=== PATIENT | female | born 1950 | race Two or more races ===

== ENCOUNTER 2017-09-22 00:12 | Inpatient (IN) | payer OTHER ==
[~2017-09-22] VITALS: Ht 167.6 cm; Wt 154.2 kg
[2017-09-22] MEDS ORDERED: NORVASC5 MG PO (01:22)
== END 2017-09-24 13:34 | disposition home or self-care (01) | DRG 293 ==
LOC: ER 00:12 → MEDJ 10:16 → SEC-K 10:16 → MEDJ 13:06 → MEDI 13:06 → MEDJ 09-24 13:34
PROC: 4A033R1 Measurement of Arterial Saturation, Peripheral, Percutaneous Approach (ICD-10-PCS; principal; 2017-09-22)
PROC: 3E0F7GC Introduction of Other Therapeutic Substance into Respiratory Tract, Via Natural or Artificial Opening (ICD-10-PCS; 2017-09-22)
PROC: B020ZZZ Computerized Tomography (CT Scan) of Brain (ICD-10-PCS; 2017-09-22)
PROC: 4A12X4Z Monitoring of Cardiac Electrical Activity, External Approach (ICD-10-PCS; 2017-09-22)
DX: I11.0 Hypertensive heart disease with heart failure (principal); I50.33 Acute on chronic diastolic (congestive) heart failure; I25.10 Atherosclerotic heart disease of native coronary artery without angina pectoris; E11.42 Type 2 diabetes mellitus with diabetic polyneuropathy; E03.8 Other specified hypothyroidism

== ENCOUNTER 2017-09-29 20:24 | Inpatient (IN) | payer OTHER ==
[~2017-09-29] VITALS: Ht 167.6 cm; Wt 149.7 kg
[~2017-09-29 20:24] MED LIST: NORVASC5 MG PO
== END 2017-10-12 18:08 | disposition home or self-care (01) | DRG 202 ==
LOC: ER 20:24 → SEC-K 09-30 10:57 → SURG 09-30 10:57 → MEDJ 09-30 17:37 → SEC-K 09-30 18:40 → SURG 09-30 20:51
PROC: 3E0F7GC Introduction of Other Therapeutic Substance into Respiratory Tract, Via Natural or Artificial Opening (ICD-10-PCS; principal; 2017-09-30)
PROC: 05H533Z Insertion of Infusion Device into Right Subclavian Vein, Percutaneous Approach (ICD-10-PCS; 2017-10-04)
DX: J45.42 Moderate persistent asthma with status asthmaticus (principal); J44.1 Chronic obstructive pulmonary disease with (acute) exacerbation; E66.01 Morbid (severe) obesity due to excess calories; G47.33 Obstructive sleep apnea (adult) (pediatric); I50.9 Heart failure, unspecified

== ENCOUNTER 2018-10-02 10:52 | Inpatient (IN) | payer OTHER ==
[~2018-10-02] VITALS: Ht 167.6 cm; Wt 154.2 kg
--- NOTE | 2018-10-02 11:10 | NUR ---
PACIENTE AL MOMENTO ESTABLE, ALERTA Y ORIENTADA X3, SIGNOS VITALES ESTABLES DENTRO DE POWELL CONDICION, ESTA REFIERE TOS PRODUCTIVA Y DIFICULTAD RESPIRATORIA, AL MOENTO O2 BAJO PARAMETROS. SE CONTINUA MONITOREANDO POR CAMBIOS SIGNIFICATIVOS.
--- NOTE | 2018-10-02 11:41 | NUR ---
SE ADMINISRAN MEDICAMENTOS Y SE RAFFAELE MUESTRAS, AL MOMENTO PACIENTE ESTABLE, SE CONTINUA MONITOREANDO POR CAMBIOS.
--- NOTE | 2018-10-02 15:54 | NUR ---
SE RECIBE FEMINA ALERTA Y ORIENTADA POR KALEE ESFERAS, EN CAMA CON BARANDAS SEGURAS Y ELEVADAS. CONECTADA A MONITOR CARDIACO CON OXIMETRIA DE PULSO. AREA DE VENOPUNCION KACIE DE EDEMA O ENROJECIMIENTO. CANULA NASAL A 3L PRESENTE. PRESENTA BUEN PATRON RESPIRATORIO. SE MANTIENE EN ESPERA DE DR. GARZA, MEDICO CONSULTADO.
== END 2018-10-15 20:40 | disposition home or self-care (01) | DRG 191 ==
LOC: ER 10:52 → MEDI 19:19 → MEDJ 19:19 → MEDI 20:10
PROVIDERS: ADMIT Internal Medicine Cardiovascular Disease
PROC: 4A033R1 Measurement of Arterial Saturation, Peripheral, Percutaneous Approach (ICD-10-PCS; principal; 2018-10-02)
PROC: 3E0F7GC Introduction of Other Therapeutic Substance into Respiratory Tract, Via Natural or Artificial Opening (ICD-10-PCS; 2018-10-02)
PROC: 0T9B70Z Drainage of Bladder with Drainage Device, Via Natural or Artificial Opening (ICD-10-PCS; 2018-10-02)
PROC: 4A12X4Z Monitoring of Cardiac Electrical Activity, External Approach (ICD-10-PCS; 2018-10-02)
PROC: 02HV33Z Insertion of Infusion Device into Superior Vena Cava, Percutaneous Approach (ICD-10-PCS; 2018-10-04)
DX: J44.1 Chronic obstructive pulmonary disease with (acute) exacerbation (principal); J45.52 Severe persistent asthma with status asthmaticus; F33.0 Major depressive disorder, recurrent, mild; B37.89 Other sites of candidiasis; R07.89 Other chest pain; G47.33 Obstructive sleep apnea (adult) (pediatric); E03.8 Other specified hypothyroidism; R06.01 Orthopnea; E66.01 Morbid (severe) obesity due to excess calories; I73.89 Other specified peripheral vascular diseases; E11.9 Type 2 diabetes mellitus without complications; Z79.4 Long term (current) use of insulin

== ENCOUNTER 2018-11-01 12:20 | Emergency (ER) | payer OTHER ==
[~2018-11-01] VITALS: Ht 167.6 cm; Wt 154.2 kg
[2018-11-01] MEDS ORDERED: LASIX40 MG (12:24)
[2018-11-01] MEDS ORDERED: LYRICA225 MG (12:24)
[2018-11-01] MEDS ORDERED: SINGULAIR 4MG4 MG (12:25)
== END 2018-11-01 19:32 | disposition home or self-care (01) ==
LOC: ER 12:20
DX: R60.0 Localized edema (principal); R06.02 Shortness of breath; E87.0 Hyperosmolality and hypernatremia

== ENCOUNTER 2018-12-05 13:16 | Inpatient (IN) | payer OTHER ==
[~2018-12-05] VITALS: Ht 167.6 cm; Wt 146.5 kg
[~2018-12-05 13:16] MED LIST changes: +LASIX40 MG; +LYRICA225 MG; +SINGULAIR 4MG4 MG
== END 2018-12-30 12:38 | disposition home or self-care (01) | DRG 292 ==
LOC: MEDJ 13:16
PROVIDERS: ADMIT Internal Medicine Cardiovascular Disease
PROC: 4A033R1 Measurement of Arterial Saturation, Peripheral, Percutaneous Approach (ICD-10-PCS; principal; 2018-12-05)
PROC: 3E0F7GC Introduction of Other Therapeutic Substance into Respiratory Tract, Via Natural or Artificial Opening (ICD-10-PCS; 2018-12-05)
PROC: B54DZZZ Ultrasonography of Bilateral Lower Extremity Veins (ICD-10-PCS; 2018-12-05)
PROC: 4A12X4Z Monitoring of Cardiac Electrical Activity, External Approach (ICD-10-PCS; 2018-12-06)
PROC: 02HV33Z Insertion of Infusion Device into Superior Vena Cava, Percutaneous Approach (ICD-10-PCS; 2018-12-20)
PROC: B246ZZZ Ultrasonography of Right and Left Heart (ICD-10-PCS; 2018-12-28)
DX: I11.0 Hypertensive heart disease with heart failure (principal); J44.1 Chronic obstructive pulmonary disease with (acute) exacerbation; F33.0 Major depressive disorder, recurrent, mild; J45.902 Unspecified asthma with status asthmaticus; J45.901 Unspecified asthma with (acute) exacerbation; E87.1 Hypo-osmolality and hyponatremia; B37.0 Candidal stomatitis; I25.10 Atherosclerotic heart disease of native coronary artery without angina pectoris; I50.33 Acute on chronic diastolic (congestive) heart failure; E66.01 Morbid (severe) obesity due to excess calories; R60.0 Localized edema; F60.7 Dependent personality disorder; E87.6 Hypokalemia; E09.9 Drug or chemical induced diabetes mellitus without complications; G47.39 Other sleep apnea; T38.0X5A Adverse effect of glucocorticoids and synthetic analogues, initial encounter; Z63.72 Alcoholism and drug addiction in family

== ENCOUNTER 2019-03-14 13:19 | Inpatient (IN) | payer OTHER ==
[~2019-03-14] VITALS: Ht 170.2 cm; Wt 158.8 kg
[2019-03-14] MEDS ORDERED: FUROSEMIDE40 MG PO (16:41)
[2019-03-14] MEDS ORDERED: ATORVASTATIN CA20 MG PO (16:42)
[2019-03-14] MEDS ORDERED: MONTELUKAST SOD10 MG PO (16:42)
[2019-03-14] MEDS ORDERED: METOLAZONE2.5 MG PO (16:42)
[2019-03-14] MEDS ORDERED: SYNTHROID88 MCG PO (16:42)
[2019-03-14] MEDS ORDERED: AMLODIPINE BESY10 MG PO (16:43)
[2019-03-14] MEDS ORDERED: KLOR-CON 88 MEQ PO (16:43)
[2019-03-14] MEDS ORDERED: LOSARTAN POTAS100 MG PO (16:43)
[2019-03-14] MEDS ORDERED: FLUOXETINE HCL40 MG PO (16:43)
== END 2019-03-21 16:52 | disposition home or self-care (01) | DRG 291 ==
LOC: MEDJ 13:19
PROVIDERS: ADMIT Internal Medicine Cardiovascular Disease
PROC: 3E0F7GC Introduction of Other Therapeutic Substance into Respiratory Tract, Via Natural or Artificial Opening (ICD-10-PCS; 2019-03-14)
PROC: 02HV33Z Insertion of Infusion Device into Superior Vena Cava, Percutaneous Approach (ICD-10-PCS; principal; 2019-03-16)
DX: I13.0 Hypertensive heart and chronic kidney disease with heart failure and stage 1 through stage 4 chronic kidney disease, or unspecified chronic kidney disease (principal); I50.33 Acute on chronic diastolic (congestive) heart failure; E87.1 Hypo-osmolality and hyponatremia; B37.0 Candidal stomatitis; F33.0 Major depressive disorder, recurrent, mild; N18.2 Chronic kidney disease, stage 2 (mild); E11.21 Type 2 diabetes mellitus with diabetic nephropathy; R60.0 Localized edema; E87.6 Hypokalemia; M32.8 Other forms of systemic lupus erythematosus; I25.10 Atherosclerotic heart disease of native coronary artery without angina pectoris; I25.2 Old myocardial infarction; J44.9 Chronic obstructive pulmonary disease, unspecified; J45.998 Other asthma; G47.33 Obstructive sleep apnea (adult) (pediatric); E66.01 Morbid (severe) obesity due to excess calories; F60.7 Dependent personality disorder; Z63.72 Alcoholism and drug addiction in family

== ENCOUNTER 2019-05-24 11:30 | Outpatient (CLI) | payer OTHER | END 2019-05-24 14:12 | disposition home or self-care (01) | LOC: NUCLEAR 11:30 | DX: I42.1 Obstructive hypertrophic cardiomyopathy (principal) ==

== ENCOUNTER → 2019-05-24 | Outpatient (CLI) | payer OTHER ==
[~2019-05-24] MED LIST changes: +AMLODIPINE BESY10 MG PO; +ATORVASTATIN CA20 MG PO; +FLUOXETINE HCL40 MG PO; +FUROSEMIDE40 MG PO; +KLOR-CON 88 MEQ PO; +LOSARTAN POTAS100 MG PO; +METOLAZONE2.5 MG PO; +MONTELUKAST SOD10 MG PO; +SYNTHROID88 MCG PO
== END | disposition home or self-care (01) ==
LOC: RAD 10:58
DX: R07.89 Other chest pain (principal)

== ENCOUNTER → 2020-03-04 | Outpatient (CLI) | payer OTHER | END | disposition home or self-care (01) | LOC: NUCLEAR 06-01 10:00 → RAD 11:48 | DX: M54.2 Cervicalgia (principal); M54.5 Low back pain ==

== ENCOUNTER 2023-05-25 09:58 | Outpatient (CLI) | payer OTHER | END 2023-05-25 10:06 | disposition home or self-care (01) | LOC: MAMO-SONO 09:58 | PROVIDERS: ATTEND Internal Medicine Cardiovascular Disease | DX: N60.12 Diffuse cystic mastopathy of left breast (principal); N63.0 Unspecified lump in unspecified breast; Z12.31 Encounter for screening mammogram for malignant neoplasm of breast ==

== ENCOUNTER → 2024-11-27 10:38 | Outpatient (CLI) | payer OTHER | END | disposition home or self-care (01) | LOC: NUCLEAR 11-20 11:00 | PROVIDERS: ATTEND Internal Medicine Cardiovascular Disease | DX: I10 Essential (primary) hypertension (principal) ==